=== PATIENT | female | born 1970 | race Caucasian/White ===

== ENCOUNTER 2016-12-24 17:37 | Emergency (ER) | payer OTHER ==
[2016-12-24 17:43] VITALS: TEMP 97.9
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
[2016-12-24 18:52] VITALS: BP 132/80; PULSE 83; RESP 16
== END 2016-12-24 18:57 | disposition home or self-care (01) ==
LOC: EC 17:37
DX: S16.1XXA Strain of muscle, fascia and tendon at neck level, initial encounter (principal); Z88.1 Allergy status to other antibiotic agents; V89.2XXA Person injured in unspecified motor-vehicle accident, traffic, initial encounter; Y92.410 Unspecified street and highway as the place of occurrence of the external cause
CPT/HCPCS: 70450; 72125; 99284

== ENCOUNTER 2022-12-31 10:25 | Day surgery (SDC) | payer MEDICARE ==
[2022-12-31] MEDS ORDERED: ONDANSETRON 4 MG/2 ML VIAL ONE (11:13)
[2022-12-31] MEDS ORDERED: LACTATED RINGERS 1,000 ML IV ONE (11:28)
[2022-12-31] MEDS ORDERED: LIDOCAINE 1% (10MG/ML) FOR IV START INTRADERMA ONE (11:28)
[2022-12-31] MEDS ORDERED: DEXAMETHASONE SOD PHOSPHATE 4 MG/ML 1 ML VIAL IV ONE (11:29)
[2022-12-31] MEDS ORDERED: ONDANSETRON 4 MG/2 ML VIAL IVP ONE (11:30)
[2022-12-31] MEDS ORDERED: MIDAZOLAM 2 MG/2 ML VIAL IVP ONE (11:51)
--- NOTE | 2022-12-31 12:19 | P.ANPRN ---
Procedure Note - Anesthesia - Nerve Block Performed Left Adductor Canal Single Time Out Performed: Yes Date of Procedure: 12/31/22 Procedure Start Time: 11:51 Procedure Stop Time: 11:56 Location of Patient: PreOp Indication: Acute Post-Operative Pain, Requested by Surgeon Sedation Type: Sedate with meaningful contact maintained Preparation: Sterile Prep Position: Supine Catheter: None Needle Types: Pajunk Needle Gauge: 21 Ultrasound used to visualize needle placement: Yes Ultrasound used to observe medication spread: Yes Injectate: 0.5% Ropivacaine (see comment for volume) (10 ml+10 ml NS) Blood Aspirated: No Pain Paresthesia on Injection Noted: No Resistance on Injection: Normal Image Stored and Saved: Yes Events: Uneventful and Well Tolerated
[2022-12-31 12:21] LABS: HCT 36.8 % (34.0-46.0); HGB 12.6 gm/dL (11.4-16.0); MCH 30.2 pg (25.0-35.0); MCHC 34.3 g/dL (31.0-37.0); MCV 87.9 fL (80.0-100.0); Mean Platelet Volume 6.9; Platelet Count 281 k/uL (150-450); RBC 4.19 m/uL (3.80-5.40); RDW 13.5 % (11.5-15.5); WBC 8.8 k/uL (3.8-10.6)
--- NOTE | 2022-12-31 12:21 | P.ANPRN ---
Procedure Note - Anesthesia - Nerve Block Performed Left Popliteal Single Date of Procedure: 12/31/22 Procedure Start Time: 11:59 Procedure Stop Time: 12:04 Location of Patient: PreOp Indication: Acute Post-Operative Pain, Requested by Surgeon Sedation Type: Sedate with meaningful contact maintained Preparation: Sterile Prep Position: Right Lateral Catheter: None Needle Types: Pajunk Needle Gauge: 21 Ultrasound used to visualize needle placement: Yes Ultrasound used to observe medication spread: Yes Injectate: 0.5% Ropivacaine (see comment for volume) (10 ml+ 10 ml NS) Blood Aspirated: No Pain Paresthesia on Injection Noted: No Resistance on Injection: Normal Image Stored and Saved: Yes Events: Uneventful and Well Tolerated
[2022-12-31] MEDS ORDERED: SUCCINYLCHOLINE CHLORIDE 200 MG/10 ML VIAL IV ONE (12:37)
[2022-12-31] MEDS ORDERED: fentaNYL (PF) 50 MCG/ML 2 ML AMP ONE (12:37)
[2022-12-31] MEDS ORDERED: MIDAZOLAM 2 MG/2 ML VIAL ONE (12:37)
[2022-12-31] MEDS ORDERED: ROPIVACAINE 5 MG/ML 30 ML VIAL ONE (12:37)
[2022-12-31] MEDS ORDERED: LIDOCAINE 1% INJ 10MG/ML (20 ML MDV) ONE (12:37)
[2022-12-31] MEDS ORDERED: PROPOFOL 10 MG/ML 20 ML VIAL IV ONE (12:37)
[2022-12-31] MEDS ORDERED: KETOROLAC 15 MG/ML 1 ML VIAL ONE (12:37)
[2022-12-31] MEDS ORDERED: SODIUM CHLORIDE 0.9% 50 ML with ceFAZolin 2,000 MG IV ONE ×2 (12:48)
--- NOTE | 2022-12-31 14:37 | P.OP ---
Date of Procedure: 12/31/22 Preoperative Diagnosis: 1. Displaced trimalleolar fracture left ankle 2. Ruptured syndesmosis left ankle Postoperative Diagnosis: Displaced bimalleolar ankle fracture Procedure(s) Performed: Open reduction with internal fixation left bimalleolar ankle fracture Implants: Olmitz 6-hole one third tubular plate with 3.5 mm locking and nonlocking screws Karina 6 hole "Y" plate with 3.5 mm locking and nonlocking screws Anesthesia: LASHELL Surgeon: Omar Pimentel Estimated Blood Loss (ml): 20 Pathology: none sent Condition: stable Disposition: PACU Description of Procedure: Prior to the patient being brought to the operative room, anesthesia administere d a nerve block on the left lower extremity. Patient was brought into the operating room where timeout was taken to confirm correct patient identifiers, correct laterality of surgery, and correct procedure. Once all staff in the room were in agreement with the timeout, the patient was induced and placed under general anesthesia. The patient was rolled onto the operating table in the prone position with the feet overhanging the end of the bed in appropriate padding beneath the thoracic area. Once anesthesia was satisfied with position of the patient, a well-padded tourniquet was placed on the left thigh and then the left leg was prepped and draped in usual manner. The left leg was exsanguinated and the thigh tourniquet inflated to 250 mmHg. Attention was directed to the posterior lateral ankle where an incision was made between the peroneal tendons in the Achilles tendon. It was deepened down to the saphenous tissue careful to identify, avoid, and retract any neurovascular structures and cauterize any bleeding vessels. Blunt dissection was then carried down to the deep fascia. Deep fascia was incised and reflected to expose the peroneal muscle bellies as well as the flexor hallucis longus muscle belly. The intermuscular septum was divided to separate the muscles and access the posterior aspect of the tibia. The posterior malleolar fracture was identified. A bone pick was used to distract the fracture and pull it distally. Once it was in proper alignment wire was placed through the fracture fragment to hold it in place. Fluoroscopy confirmed anatomic alignment of the articular surface of the posterior tibia over the ankle. A Karina plate was then positioned over the posterior malleolar fracture. The position was adjusted so that the distal screws would avoid the ankle joint. Once it was properly positioned it was temporarily fixated the first screw was through the hole just proximal to the superior fracture line. It was a nonlocking screw that was used to contour the plate to act as anti-glide. The next 2 screws were nonlocking screws that went through the plate as well as the fracture fragment for interfragmentary compression and reduction. Once that was completed fluoroscopy confirmed the proper position of the hardware as well as maintain anatomic alignment of the fracture. The last screw was a locking screw that was placed at the most superior hole the plate. The guidewires were removed and final fluoroscopic imaging confirmed the proper placement of hardware as well as anatomic alignment the fracture. Then attention was directed to the lateral malleolar fracture where a posterior fixation approach was planned the soft tissue was reflected off the posterior aspect of the fibula. The hematoma was evacuated between the fracture fragments. The fibular was brought out to length and then a 6-hole one third tubular plate was positioned over the posterior lateral malleolus and temporarily fixated. Fluoroscopy confirmed the proper placement of the plate both on AP and lateral views and that there were at least 2 holes distal and proximal to the fracture line. The first screw placed was the most proximal screw that was a nonlocking screw. The next screw was the most distal screw and again another nonlocking screw. Then in the holes adjacent to the first 2 screws locking screws were placed. Final fluoroscopic imaging showed anatomic alignment of the fracture with maintained length of the fibula. All hardware was properly positioned. All temporary fixation was removed. The wound is thoroughly irrigated with antibiotic saline. Deep closure was done with 2-0 Vicryl superficial fascial closure was done with 2-0 Vicryl subcu closure done for Monocryl and skin closure done with michelle. Jumpstart dressings placed over the incision then a bulky dry dressings applied to the left ankle. The tourniquet was released and capillary refill return to all digits on the left foot. Then the patient was placed in a well-padded, well molded plaster posterior mold/sugar tong splint. Ankle was held in neutral position until the splint was dried. Then the patient was rolled back onto the transfer table in the supine position at which point anesthesia was reversed and that she was taken recovery with vital signs stable
--- NOTE | 2022-12-31 14:43 | FL ---
Intraoperative/procedural fluoroscopic services were provided. Total fluoroscopy time is 1 minute 15 seconds with a total of 6 submitted images to PACS. Please see the operative/procedural note for furt her details. DAP: 0.7338 Gycm2
[2022-12-31] MEDS ORDERED: HYDROmorphone 0.5 MG/0.5 ML SYRINGE IVP ONE ×3 (14:47→15:17)
[2022-12-31 14:54] VITALS: TEMP 96.9
[2022-12-31 16:56] VITALS: BP 116/80; PULSE 75; RESP 17
== END 2022-12-31 17:08 | disposition home or self-care (01) ==
LOC: OR 10:25
PROVIDERS: ATTEND Podiatrist
DX: S82.852A Displaced trimalleolar fracture of left lower leg, initial encounter for closed fracture (principal); G89.18 Other acute postprocedural pain; F10.90 Alcohol use, unspecified, uncomplicated; F17.200 Nicotine dependence, unspecified, uncomplicated; K21.9 Gastro-esophageal reflux disease without esophagitis; Z88.1 Allergy status to other antibiotic agents; Z79.899 Other long term (current) drug therapy; Z90.49 Acquired absence of other specified parts of digestive tract; Z98.890 Other specified postprocedural states; X58.XXXA Exposure to other specified factors, initial encounter
CPT/HCPCS: 27822; 64447; 64445; 85027; 73610; C1713; J2250; J0330; J1100; J2405; J0690; J2001; J3010; J2795; J1885; J2704; J1170